=== PATIENT | male | born 1980 | race Caucasian/White ===

== ENCOUNTER 2025-04-02 01:14 | Emergency (ER) | payer MEDICAID, SELFPAY ==
[2025-04-02 01:18] VITALS: BP 141/90; PULSE 78; RESP 20; TEMP 36.5; O2SAT 97; BMI 24.0
--- NOTE | 2025-04-02 01:21 | XR_ITS ---
Examination: CT abdomen and pelvis without contrast. Coronal 3-D reconstructions. Sagittal 2-D reconstructions. Date and time of exam: April 02, 2025, 0155 hours, comparison January 11, 2016 INDICATIONS: Right-sided flank pain today, history kidney stones CTDI: vol (mGy): 6.91 DLP: (mGycm): 415 Technique: Axial images of the abdomen have been obtained, 3 mm slice thickness Intravenous contrast material has not been administered. Low dose protocols were performed. One or more of the following dose reduction techniques were used; automated exposure control, adjustment of the mA and/or KV according to patient size, use of iterative reconstruction technique. Findings: No visualized liver or splenic lesion Contracted gallbladder No pancreatic or adrenal mass Advanced right hydronephrosis secondary to 6 mm distal right ureteral calculus Normal appendix No bladder mass Intact osseous structures IMPRESSION: Prominent right hydronephrosis secondary to 6 mm distal right ureteral calculus
[2025-04-02] MEDS: SODIUM CHLORIDE 0.9% 1000 ML 1,000 ML 999 ML IV (01:36)
[2025-04-02] MEDS: MORPHINE SULF INJ 4 MG/ML VIAL IVP (01:36)
[2025-04-02] MEDS: ONDANSETRON INJ 2 MG/ML INJ 2 ML 4 MG IVP (01:37)
[2025-04-02] MEDS: KETOROLAC INJ 30 MG/ML VIAL IVP ×2 (01:37→08:40)
[2025-04-02 02:06] LABS: Basophils # (Auto) 0.1 Thou/mm3 (0.0-0.2); Basophils % (Auto) 0 % (0-2.5); Eosinophils # (Auto) 0.2 Thou/mm3 (0.0-0.5); Eosinophils % (Auto) 2 % (0-10); Hematocrit 44.8 % (41.0-53.0); Hemoglobin 14.9 g/dL (13.5-16.0); Immature Granulocytes Auto 0.06 Thou/mm3 (0.00-0.00); Lymphocytes # (Auto) 2.8 Thou/mm3 (1.0-4.8); Lymphocytes % (Auto) 17 % (10-50); Mean Corpuscular HGB Conc 33.3 g/dl (31.0-37.0); Mean Corpuscular Hemoglobin 30.2 pg (25.0-35.0); Mean Corpuscular Volume 91 fL (80-100); Monocytes # (Auto) 1.3 Thou/mm3 (0.0-0.8); Monocytes % (Auto) 8 % (0-12); Neutrophils # (Auto) 11.8 Thou/mm3 (1.8-7.7); Neutrophils % (Auto) 73 % (37-80); Nucleated Red Blood Cell # 0.00 Thou/mm3 (0.00-0.00); Nucleated Red Blood Cell % 0 /100 WBC (0); Platelet Count 310 Thou/mm3 (140-440); RDW Standard Deviation 44.9 fL (35.1-43.9); Red Blood Count 4.93 Miln/mm3 (4.50-5.90); White Blood Count 16.3 Thou/mm3 (3.8-10.6)
[2025-04-02 02:12] VITALS: BP 126/94; PULSE 74; RESP 17; TEMP 36.6; O2SAT 97
[2025-04-02 02:27] LABS: Alanine Aminotransferase 12 U/L (10-49); Albumin, Serum 4.8 gm/dL (3.5-5.0); Albumin/Globulin Ratio 2.0 (1.2-2.2); Alkaline Phosphatase 80 U/L (46-116); Anion Gap 9 (7-16); Aspartate Amino Transferase 18 U/L (0-34); BUN/Creatinine Ratio 11 Ratio (12-20); Bilirubin,Total 0.3 mg/dL (0.3-1.2); Blood Urea Nitrogen 13 mg/dL (9-23); Calcium 9.3 mg/dL (8.3-10.6); Calcium (Corrected) 9.3 mg/dL (8.5-10.1); Carbon Dioxide 28.6 mMol/L (20.0-31.0); Chloride 103 mMol/L (98-107); Creatinine (Component) 1.2 mg/dL (0.6-1.3); Estimated Creatinine Clearance 79.4 mL/min (>60); Globulin 2.4 gm/dL (2.3-3.5); Glucose 110 mg/dL (74-106); Lipase 67 U/L (12-53); Osmolality,Calculated 282 (275-295); Potassium 3.6 mMol/L (3.4-5.1); Sodium 141 mMol/L (136-145); Total Protein 7.2 gm/dL (5.7-8.2); eGFR > 60 See Note
[2025-04-02 02:37] LABS: Collection Type, Urine Clean Catch
--- NOTE | 2025-04-02 03:03 | PRELIM_ITS ---
CT scan of the abdomen and pelvis without intravenous contrast (axial sections with sagittal and coronal reformats). April 02, 2025 at 0146 hours Clinical History: Kidney stone. Comparison: No prior study is available for comparison available at the time of this report. Findings: The lung bases are clear. The liver, gallbladder, pancreas, spleen, and adrenals are unremarkable on this noncontrast study. Right distal ureter stone measuring 0.6 cm; the stone is not visible on the spray ii painter image; the stone is about 5.0 cm from the UVJ, with severe right hydroureteronephrosis. Nonobstructing right kidney stones. There is no evidence of bowel obstruction. There is no evidence of appendicitis. There is no mesenteric or retroperitoneal adenopathy. The urinary bladder is nondistended, with limited evaluation. There is no free fluid or free air. The osseous structures are unremarkable. Impression: Right distal ureteral stone associated with severe hydroureteronephrosis. Nonobstructing right nephrolithiasis. Report Electronically Signed By: Daljit Petty 04/02/2025 3:02:51 AM [EST]
[2025-04-02] MEDS: cefTRIAXone 2 GM in SODIUM CHLORIDE 0.9% (Popper) 50 ML IV (03:29)
[2025-04-02] MEDS: TAMSULOSIN HCL 0.4 MG CAPSULE PO (03:34)
[2025-04-02 03:38] LABS: Amorphous Crystals,Urine Present (Absent); Bilirubin,Urine Negative (Negative); Blood,Urine Trace (Negative); Clarity,Urine Turbid (Clear/Hazy); Color,Urine Yellow (Lt Yel-Yel); Glucose, Urine Negative (Negative); Ketones,Urine Negative (Negative); Leukocyte Esterase,Urine Positive (Negative); Nitrite,Urine Negative (Negative); PH,Urine 6.5 (5.0-7.0); Protein,Urine Trace (Neg - Trace); RBC,Urine 47 /hpf (0-3); Specific Gravity,Urine 1.028 (1.001-1.035); Squamous Epithelial Cell,Urine 1 /hpf (0-5); Urobilinogen,Urine Negative mg/dL (0.0-1.0); WBC,Urine 125 /hpf (0-5)
--- NOTE | 2025-04-02 03:45 | PD.EDABDPN ---
ED Abdominal Pain RME/HPI General Chief Complaint: Abdominal Pain Stated complaint: RIGHT FLANK PAIN Time seen by provider: 04/02/25 01:21 Arrival date/time: 04/02/25 01:14 This is a case of 45-year-old male with history of kidney stone and surgery for kidney stone came in in the emergency room due to right flank pain radiating to the right lower abdomen for 3 days worse today associated with nausea vomiting patient denies any fever or chills worsening of the symptoms this patient decided to start consult her in the emergency room Limitations: no limitations Related Data Home Medications ?Medication ?Instructions ?Recorded ?Confirmed ciprofloxacin HCl 500 mg tablet 500 mg PO Q12H 07/09/17 07/09/17 (Cipro) Previous Rx's ?Medication ?Instructions ?Recorded Hydrocodone/Acetaminophen * (NORCO 1 - 2 tab PO Q4H PRN PAIN #20 tabs 01/12/16 5/325 *) azithromycin 500 mg tablet See Rx Instructions PO .COMPLEX #3 07/08/21 tabs metoclopramide HCl 5 mg tablet 5 mg PO QDAY #14 tabs 07/08/21 (Reglan) Allergies Allergy/AdvReac Type Severity Reaction Status Date / Time No Known Allergies Allergy Verified 04/02/25 01:14 Review of Systems Review of Systems Systems Reviewed: All systems reviewed, normal except as documented Constitutional Constitutional: Reports system reviewed and no additional complaints, except as documented and Reports as per HPI ENT Ears, Nose, Mouth, and Throat: Denies dysphagia and Denies odynophagia Cardiovascular Cardiovascular: Reports system reviewed and no additional complaints, except as documented and Reports as per HPI Respiratory Respiratory: Reports system reviewed and no additional complaints, except as documented and Reports as per HPI Gastrointestinal Gastrointestinal: Reports system reviewed and no additional complaints, except as documented, Reports as per HPI, Reports abdominal pain, Denies belching, Denies bloating, Denies change in bowel habits, Denies change in stool character, Denies coffee ground emesis, Denies constipation, Denies cramping, Denies diarrhea, Denies dyspepsia, Denies dysphagia, Denies early satiety, Denies excessive flatus, Denies fecal incontinence, Denies heartburn, Denies hematemesis, Denies hematochezia, Denies loose stools, Denies melena, Reports nausea, Denies odynophagia, Denies tenesmus and Reports vomiting Genitourinary Genitourinary: Reports system reviewed and no additional complaints, except as documented and Reports as per HPI Neurologic Neurologic: Reports system reviewed and no additional complaints, except as documented and Reports as per HPI Past Medical History Past Medical History NEUROLOGIC: Negative Neurological Disorders CARDIAC: Negative Cardiac Disorders or Congestive Heart Failure RESPIRATORY: Negative Chronic Obstructive Pulmonary Disease (COPD) GASTROINTESTINAL: Negative Gastrointestinal Disorders GENITOURINARY: Positive Genitourinary Disorders and Kidney Stones; Negative Renal Disease MUSCULOSKELETAL: Negative Musculoskeletal Disorders ENDOCRINE: Negative Endocrine Disorders, Diabetes Mellitus Type 1 or Diabetes Mellitus Type 2 HEMATOLOGIC: Negative Blood Disorders OTHER HISTORY: Negative Anesthesia Reactions Social History SMOKING STATUS: Current every day smoker ED Exam General Limitations: Present no limitations General appearance: Present alert, in no apparent distress and other (Salvador is awake alert oriented not in distress nontoxic looking well-hydrated well-nourished) Head Head exam: Present atraumatic, normocephalic and normal inspection Eye Eye exam: Present normal appearance, PERRL and EOMI ENT ENT exam: Present normal exam, normal oropharynx and mucous membranes moist Neck Neck exam: Present normal inspection, full ROM and trachea midline; Absent tenderness, meningismus, lymphadenopathy or thyromegaly Chest Chest inspection: Present normal inspection and symmetric chest wall rise; Absent tenderness Respiratory Respiratory exam: Present normal lung sounds bilaterally; Absent respiratory distress, wheezes, stridor, accessory muscle use or prolonged expiratory phase Cardiovascular Cardiovascular exam: Present regular rate, normal rhythm and normal heart sounds; Absent bradycardia, tachycardia, irregular rhythm, systolic murmur or diastolic murmur Abdominal Exam Abdominal exam: Present soft, tenderness (Tenderness on the right lower abdomen and right flank right upper quadrant no CVA tenderness) and normal bowel sounds; Absent distention, guarding, rebound, rigidity, diminished bowel sounds, hyperactive bowel sounds, hypoactive bowel sounds, organomegaly, psoas sign, obturator sign, Montesinos's sign, Rovsing's sign, tenderness at McBurney's Point or hernia Extremities Exam Extremities exam: Present normal inspection and full ROM Back Exam Back exam: Present normal inspection and full ROM Neurological Exam Neurological exam: Present alert, oriented X3, CN II-XII intact, normal gait and reflexes normal; Absent motor sensory deficit Psychiatric Psychiatric exam: Present normal affect and normal mood Skin Skin exam: Present warm, dry, intact, normal color and other (Excellent skin turgor) Course Quality Measures none Orders Category Date Time Status IV [Insert IV] NOW Care 04/02/25 01:[address] abdomen pelvis wo con Stat Exams 04/02/25 01:21 Taken CBC Stat Lab 04/02/25 01:39 Completed Comprehensive Metabolic Panel Stat Lab 04/02/25 01:39 Completed Lipase Stat Lab 04/02/25 01:39 Completed Urinalysis Stat Lab 04/02/25 02:33 Completed Ketorolac Inj [Toradol Inj] Med 04/02/25 01:21 Discontinued 30 mg IVP X1 ONE Morphine* Inj Med 04/02/25 01:21 Discontinued 4 mg IVP X1 ONE Ondansetron Inj [Zofran Inj] Med 04/02/25 01:21 Discontinued 4 mg IVP X1 ONE Sodium Chloride 0.9% 1000 ml [Ns] 1,000 ml Med 04/02/25 01:22 Discontinued IV 999 mls/hr Tamsulosin HCl [Flomax] Med 04/02/25 03:30 Discontinued 0.4 mg PO X1 ONE cefTRIAXone [Rocephin] 2 gm Med 04/02/25 03:21 Discontinued SODIUM CHLORIDE 0.9% (Popper) [Ns 0.9% (P)] 50 ml IV X1 Vital Signs Vital signs: Vital Signs Temperature 97.7 F 04/02/25 01:18 Pulse Rate 78 04/02/25 01:18 Respiratory Rate 20 04/02/25 01:18 Blood Pressure 141/90 H 04/02/25 01:18 Pulse Oximetry (%) 97 04/02/25 01:18 Oxygen Delivery Method Room Air 04/02/25 01:18 Oxygen saturation 97% in room Abdominal Pain MDM MDM Narrative MDM Narrative:: This is a case of 45-year-old male with history of kidney stone and surgery for kidney stone came in in the emergency room due to right flank pain radiating to the right lower abdomen for 3 days worse today associated with nausea vomiting patient denies any fever or chills worsening of the symptoms this patient decided to start consult her in the emergency room physical examination patient is awake alert oriented not in distress nontoxic looking well-hydrated well-nourished moderate tenderness on the right lower right upper quadrant and right flank but no CVA tenderness negative psoas negative straight or negative Rovsing's negative McBurney's negative Montesinos sign negative CVA tenderness blood test showed leukocytosis of WBC 16.1 with no anemia platelets normal kidney and liver function is normal no electrolyte imbalance lipase is slightly elevated at 67 urinalysis showed WBC and RBC in the urine suggestive of urinary tract infection patient CT scan showed a 0.6 cm stone ureteral with right small nephrolithiasis with severe hydroureteronephrosis based on my physical examination and history patient symptoms suggestive of infected kidney stone thus I discussed with Dr. Camacho regarding patient condition history and physical examination blood test urinalysis and imaging he agreed that the patient need to be transferred to higher level of care and needs to be seen by the urologist for further evaluation and treatment patient was endorsed accordingly with Dr. Camacho for coordination of transfer patient informed regarding the transfer and treatment and agreed patient was given a bolus of normal saline morphine and Toradol for pain Zofran for nausea vomiting and Flomax Patient data External records reviewed:: [facility] previous records Clinical information provided by:: patient Social determinants that could affect healthcare access:: none Patient has the following chronic illnesses:: None How is presenting disease/condition affected by chronic disease/condition?: no chronic disease Evaluation data The following diagnostics were reviewed and interpreted by me:: lab results and radiology exam(s) Lab and/or radiology exams considered but not ordered:: Reviewed Interpretation Summary: Reviewed Medications / Prescriptions Medications or Prescriptions considered but not ordered:: Given Medication administrations:: Medication Administration History Discontinued Medications Sodium Chloride (Ns) 1,000 mls @ 999 mls/hr IV .Q1H1M ONE Stop: 04/02/25 02:22 Last Infusion: 04/02/25 03:31 Dose: Infused Documented By: Admin: 04/02/25 01:36 Dose: 999 mls/hr Documented By: JERRELL Ceftriaxone Sodium 2 gm/ (Sodium Chloride) 50 mls @ 100 mls/hr IV X1 ONE Stop: 04/02/25 03:50 Last Admin: 04/02/25 03:29 Dose: 100 mls/hr Documented By: JERRELL Ketorolac Tromethamine (Ketorolac Inj 30 Mg/Ml Vial) 30 mg IVP X1 ONE Stop: 04/02/25 01:22 Last Admin: 04/02/25 01:37 Dose: 30 mg Documented By: JERRELL Morphine Sulfate (Morphine Sulf Inj 4 Mg/Ml Vial) 4 mg IVP X1 ONE Stop: 04/02/25 01:22 Last Admin: 04/02/25 01:36 Dose: 4 mg Documented By: JERRELL Ondansetron HCl (Ondansetron Inj 2 Mg/Ml Inj 2 Ml) 4 mg IVP X1 ONE; Protocol Stop: 04/02/25 01:22 Last Admin: 04/02/25 01:37 Dose: 4 mg Documented By: JERRELL Tamsulosin HCl (Tamsulosin Hcl 0.4 Mg Capsule) 0.4 mg PO X1 ONE Stop: 04/02/25 03:31 Last Admin: 04/02/25 03:34 Dose: 0.4 mg Documented By: CB Given Consultations Consultation(s) initiated? (list below): Yes Consultation #1 (Physician, Specialty, Details): Dr. Camacho discussed patient condition history and physical examination relayed the results of blood test imaging agreed that the patient need to be transferred for infected kidney stone endorsed patient accordingly to Dr. Camacho for coordinating for transfer to higher level of care Diagnosis Differential diagnosis abdominal pain: abdominal pain, acute appendicitis, calculus of kidney, gastroenteritis, pancreatitis and small bowel obstruction Most likely diagnosis given after review of the tests above:: Ureteral stone with severe hydroureteronephrosis Admission Indicated Admission indicated?: indicated Explain why admission is indicated or not indicated:: Infected ureteral stone with hydroureteronephrosis Admission Request Was there a request for admission?: No Disposition Plan Disposition Plan: Transfer Discharge Plan Prescriptions/Referrals Prescriptions/Med Rec: No Action Hydrocodone/Acetaminophen * (NORCO 5/325 *) 1 TAB tablet 1 - 2 tab PO Q4H PRN (Reason: PAIN) Qty: 20 0RF Rx Instructions: FOR PAIN azithromycin 500 mg tablet See Rx Instructions .ROUTE .COMPLEX Qty: 3 0RF Rx Instructions: For 500 mg dose pack: take 500 mg once daily for 3 days metoclopramide HCl [Reglan] 5 mg tablet 5 mg PO QDAY Qty: 14 0RF ciprofloxacin HCl [Cipro] 500 mg Tablet 500 mg PO Q12H Referrals: No Primary/Family,Physician [Primary Care Provider] - In 1 week Problem List Clinical Impression: Ureteral stone, Hydroureteronephrosis, Urinary tract infection Patient/Caregiver Discharge Instructions Print Language: Setswana
--- NOTE | 2025-04-02 03:47 | PD.EDADDENDU ---
Emergency Room Addendum <Autumn Moreno - Last Filed: 04/02/25 04:56> Addendum Narrative: Care assumed from Hannah Reed NP. Past medical, surgical, social and family history reviewed. Vitals and home medications reviewed. Results and treatment plan discussed. I will assume the care of the patient at this time and will follow the patient, pending transfer. Please refer to the emergency department record for history and examination from initial visit. I took over this patient from nurse practitioner Derek. Patient has an infected kidney stone. She has a leukocytosis with evidence for infection in the urine. Patient has received Rocephin [address] scan done of the abdomen and pelvis without contrast showed a 6 mm stone of the distal right ureter with severe hydronephrosis. The stone is approximately 5 cm from the right UVJ. Due to the fact that the patient has an obvious obstructing kidney stone with infection the patient will need to be transferred for urological services due to the fact that I do not have a urologist on-call. Patient's pain has been controlled with morphine and Toradol. Back in 2018 the patient did have a right sided kidney stone requiring a ureteral stent. 0455: Dr. Humberto Azevedo, urologist from [facility], accepts the patient for transfer. <Rafael Caamcho DO - Last Filed: 04/02/25 05:07> Addendum Narrative: Care assumed from Hannah Reed NP. Past medical, surgical, social and family history reviewed. Vitals and home medications reviewed. Results and treatment plan discussed. I will assume the care of the patient at this time and will follow the patient, pending transfer. Please refer to the emergency department record for history and examination from initial visit. I took over this patient from nurse arianna Reed. Patient has an infected kidney stone. She has a leukocytosis with evidence for infection in the urine. Patient has received Rocephin [address] scan done of the abdomen and pelvis without contrast showed a 6 mm stone of the distal right ureter with severe hydronephrosis. The stone is approximately 5 cm from the right UVJ. Due to the fact that the patient has an obvious obstructing kidney stone with infection the patient will need to be transferred for urological services due to the fact that I do not have a urologist on-call. Patient's pain has been controlled with morphine and Toradol. Back in 2018 the patient did have a right sided kidney stone requiring a ureteral stent.
[2025-04-02 04:16] VITALS: BP 118/87; PULSE 78; RESP 16; TEMP 36.5; O2SAT 97
--- NOTE | 2025-04-02 04:33 | PC.NURSE ---
[id number]-[facility] contacted for possible urology transfer, they stated they would have urology available after 0800. Stated if we wanted to present the case we can and they would present it to MD JANE after 0800. [id number]-[facility] contacted for urology transfer, Clinicals faxed over and initiated transfer with Shawna. Shah questions answered by MD Camacho. They also requested imaging to be forwarded which MD Camacho via text.
--- NOTE | 2025-04-02 04:54 | PC.NURSE ---
[facility] accepts at 0352 Urologist Humberto Azevedo. Nurse to Nurse Report to [phone]
[2025-04-02 06:15] VITALS: BP 121/83; PULSE 76; RESP 18; TEMP 36.5; O2SAT 97
[2025-04-02 07:03] VITALS: BP 125/88; PULSE 75; RESP 16; TEMP 36.4; O2SAT 97
--- NOTE | 2025-04-02 07:06 | PC.NURSE ---
Report received from pm nurse, patient lying in rsatartia quietly. Patient to er with c/o right flank pain x 1 month, in which patient states the pain got worse yesterday. Patient awaiting transfer to other facility, patient has h/o kidney stones and has had to have stent placed in 2014. Currently, patient states pain is tolerable at a 3/10 at this time with administration of pain medication. Skin is warm dry and pink, patient has no other needs at this time, call light within reach.
[2025-04-02 08:35] VITALS: BP 125/89; PULSE 73; RESP 16; O2SAT 98
[2025-04-02] MEDS: HYDROmorphone INJ 2 MG/ML VIAL 1 MG IVP (08:40)
--- NOTE | 2025-04-02 08:45 | PC.NURSE ---
Report given to Martin e commerce manager, here to transport patient to [facility] in [place].
--- NOTE | 2025-04-02 08:48 | PC.NURSE ---
Report called to ER [facility]ammi at [facility].
== END 2025-04-02 09:00 | disposition short-term general hospital (02) ==
PROVIDERS: Nurse Practitioner Family; Emergency Provider Emergency Medicine
DX: N13.6 Pyonephrosis (principal); Z87.442 Personal history of urinary calculi
CPT/HCPCS: 36415; 74176; 80053; 81001; 83690; 85025; 96361; 96365; 96375; 96376; 99284; J0696; J1171; J1885; J2270; J2405; J7030; J7050; A9270